=== PATIENT | male | born 1955 | race African-American/Black ===

== ENCOUNTER 2022-12-14 03:55 | Emergency (ER) | payer MEDICARE, OTHER ==
[~2022-12-14] VITALS: Ht 172.7 cm; Wt 76.0 kg
[~2022-12-14 03:55] MED LIST: ACET-3161 PO
[2022-12-14 04:03] VITALS: BP 132/109; PULSE 98; RESP 14; TEMP 98; O2SAT 100
[2022-12-14] MEDS ORDERED: ACETAMINOPHEN 325MG TABLET PO ONE (05:45)
[2022-12-14] MEDS ORDERED: TOPUD PO (05:56)
[2022-12-14] MEDS ORDERED: NALO4SPR BOTHNSTRLS (05:56)
[2022-12-14] MEDS ORDERED: B50 PO (05:56)
== END 2022-12-14 07:33 | disposition home or self-care (01) ==
LOC: ER 03:55
DX: G47.00 Insomnia, unspecified (principal); M79.641 Pain in right hand; M54.9 Dorsalgia, unspecified
CPT/HCPCS: 73130; 93005; 99283

== ENCOUNTER 2024-12-15 19:12 | Emergency (ER) | payer MEDICARE ==
[~2024-12-15] VITALS: Ht 167.6 cm; Wt 79.0 kg
[~2024-12-15 19:12] MED LIST changes: +B50 PO; +NALO4SPR BOTHNSTRLS; +TOPUD PO
[2024-12-15 19:14] VITALS: O2SAT 98
[2024-12-15 19:40] VITALS: BP 189/112; PULSE 66; RESP 18; TEMP 36.7; O2SAT 100
== END 2024-12-15 21:00 | disposition left against medical advice (07) ==
LOC: ER 19:12
DX: I10 Essential (primary) hypertension (principal); Z53.21 Procedure and treatment not carried out due to patient leaving prior to being seen by health care provider

== ENCOUNTER 2024-12-16 08:51 | Inpatient (IN) | payer OTHER, MEDICARE ==
[~2024-12-16] VITALS: Ht 327.7 cm; Wt 86.3 kg
[2024-12-16 08:53] VITALS: O2SAT 98
[2024-12-16 09:53] LABS: CREATININE 1.1 mg/dL (0.6-1.3)
[2024-12-16 09:54] LABS: TROPONIN I HIGH SENSITIVITY 37 ng/L (3.0-53); UREA NITROGEN BLOOD 9 mg/dL (9-23)
[2024-12-16 10:13] LABS: BASOPHILS % 1.0 % (0.0-2.0); EOSINOPHILS % 1.5 % (0.0-5.0); HEMATOCRIT. 36.2 % (42.0-52.0); HEMOGLOBIN. 11.9 g/dL (14.0-18.0); LYMPHOCYTES % 30.1 % (20.0-50.0); MEAN PLATELET VOLUME 8.6 fl (7.4-10.4); MONOCYTES % 8.9 % (2.0-8.0); NEUTROPHILS % 58.5 % (40.0-76.0); PLATELET 148 x1000/uL (130-400); RED BLOOD CELL COUNT 3.77 mill/uL (4.7-6.1); RED CELL DISTRIBUTION WIDTH 14.7 % (11.6-14.6)
[2024-12-16] MEDS ORDERED: ENOXAPARIN 80MG/0.8ML SYR SUBCUT SCH (11:30)
[2024-12-16] MEDS: ASPIRIN 81MG TABLET PO SCH (11:34)
[2024-12-16] MEDS: FUROSEMIDE 40MG/4ML VIAL IVP SCH (11:35)
[2024-12-16] MEDS: ISOSORBIDE DINITRATE 10MG TABLET PO SCH (11:35)
[2024-12-16 11:45] VITALS: BP 171/93; PULSE 60; RESP 19; TEMP 37.5
[2024-12-16 12:00] VITALS: BP 171/93; PULSE 60; RESP 19; TEMP 37.5; O2SAT 100
[2024-12-16] MEDS ORDERED: ONDANSETRON HCL 4MG/2ML INJ IV PRN (12:45)
[2024-12-16] MEDS ORDERED: ACETAMINOPHEN 325MG TABLET PO PRN (12:45)
[2024-12-16] MEDS ORDERED: IPRATROPIUM/ALBUTEROL 0.5-3(2.5)MG/3ML NEB NEB PRN (12:45)
[2024-12-16] MEDS ORDERED: MAGNESIUM/ALUMINUM HYDROXIDE/SIMETHICONE 30ML UDC PO PRN (12:45)
[2024-12-16] MEDS ORDERED: ENOXAPARIN 40MG/0.4ML SYR SUBCUT SCH (12:45)
[2024-12-16] MEDS ORDERED: HYDROCODONE/ACETAMINOPHEN 5/325MG TABLET PO PRN (12:45)
[2024-12-16] MEDS ORDERED: NALOXONE HCL 0.4MG/ML VIAL IV PRN (13:00)
[2024-12-16 13:15] LABS: INR 1.2
[2024-12-16] MEDS ORDERED: FUROSEMIDE 40MG/4ML VIAL IVP SCH (14:15)
[2024-12-16 16:00] VITALS: BP 179/94; PULSE 78; RESP 19; TEMP 37.1; O2SAT 100
[2024-12-16 16:21] LABS: TROPONIN I HIGH SENSITIVITY 40 ng/L (3.0-53)
[2024-12-16] MEDS: ENOXAPARIN 100MG/ML SYR SUBCUT SCH (16:40)
[2024-12-16 18:11] LABS: TROPONIN I HIGH SENSITIVITY 38 ng/L (3.0-53)
[2024-12-16 20:00] VITALS: BP 141/89; PULSE 76; RESP 20; TEMP 36.5; O2SAT 99
[2024-12-16] MEDS: ATORVASTATIN CALCIUM 40MG TABLET PO SCH (21:41)
[2024-12-16] MEDS: ZOLPIDEM TARTRATE 5MG TABLET PO PRN (21:46)
[2024-12-16 22:02] LABS: *AMPHETAMINES SCREEN URINE NEGATIVE (NEGATIVE); *BARBITURATES SCREEN URINE NEGATIVE (NEGATIVE); *BENZODIAZEPINES SCREEN URINE NEGATIVE (NEGATIVE); *COCAINE SCREEN URINE NEGATIVE (NEGATIVE); CANNABINOID URINE SCREEN NEGATIVE (NEGATIVE); ECSTASY MDMA SCREEN URINE NEGATIVE (NEGATIVE); METHADONE URINE SCREEN NEGATIVE (NEGATIVE); OPIATES URINE SCREEN PRESUMPTIVE POSITIVE (NEGATIVE); PHENCYCLIDINE URINE SCREEN NEGATIVE (NEGATIVE)
[2024-12-17] VITALS: BP 111/72; PULSE 64; RESP 19; TEMP 36.4; O2SAT 99
[2024-12-17 00:22] LABS: TROPONIN I HIGH SENSITIVITY 50 ng/L (3.0-53)
[2024-12-17 04:00] VITALS: BP 110/72; PULSE 65; RESP 20; TEMP 36.5; O2SAT 98
[2024-12-17] MEDS: ISOSORBIDE DINITRATE 10MG TABLET PO SCH (06:00)
[2024-12-17 06:26] LABS: BASOPHILS % 0.6 % (0.0-2.0); EOSINOPHILS % 1.7 % (0.0-5.0); HEMATOCRIT. 37.3 % (42.0-52.0); HEMOGLOBIN. 12.0 g/dL (14.0-18.0); LYMPHOCYTES % 49.0 % (20.0-50.0); MEAN PLATELET VOLUME 8.6 fl (7.4-10.4); MONOCYTES % 11.6 % (2.0-8.0); NEUTROPHILS % 37.1 % (40.0-76.0); PLATELET 159 x1000/uL (130-400); RED BLOOD CELL COUNT 3.85 mill/uL (4.7-6.1); RED CELL DISTRIBUTION WIDTH 15.2 % (11.6-14.6)
[2024-12-17 06:55] LABS: CREATININE 1.2 mg/dL (0.6-1.3); UREA NITROGEN BLOOD 14 mg/dL (9-23)
[2024-12-17 08:00] VITALS: BP 149/76; PULSE 72; RESP 20; TEMP 36.5; O2SAT 99
[2024-12-17] MEDS: PANTOPRAZOLE SODIUM 40 MG/VIAL IV SCH (08:42)
[2024-12-17 12:00] VITALS: BP 166/89; PULSE 77; RESP 20; TEMP 36.7; O2SAT 98
[2024-12-17] MEDS: POTASSIUM CHLORIDE 20MEQ TABLET SR PO SCH (12:26)
[2024-12-17 16:00] VITALS: BP 163/103; PULSE 88; RESP 18; TEMP 36.3; O2SAT 98
[2024-12-17] MEDS: CLONIDINE 0.1MG TABLET PO PRN (16:11)
== END 2024-12-17 18:05 | disposition left against medical advice (07) | DRG 291 ==
LOC: ER 08:51 → 8WST 10:26 → ENRESERV 10:47
PROVIDERS: ADMIT Internal Medicine; ATTEND Internal Medicine
DX: I11.0 Hypertensive heart disease with heart failure (principal); I50.43 Acute on chronic combined systolic (congestive) and diastolic (congestive) heart failure; J96.01 Acute respiratory failure with hypoxia; I16.1 Hypertensive emergency; I25.110 Atherosclerotic heart disease of native coronary artery with unstable angina pectoris; I42.0 Dilated cardiomyopathy; E78.5 Hyperlipidemia, unspecified; Z96.649 Presence of unspecified artificial hip joint; Z53.29 Procedure and treatment not carried out because of patient's decision for other reasons
CPT/HCPCS: 36415; 71045; 76604; 80048; 80305; 83880; 84484; 85025; 93005; 93306; 93880; 99285; A4606; J1650; J1940; J2470

== ENCOUNTER 2025-04-08 09:40 | Emergency (ER) | payer MEDICARE ==
[~2025-04-08] VITALS: Ht 175.3 cm; Wt 86.0 kg
[~2025-04-08 09:40] MED LIST changes: -B50 PO; +DIPH50CA42 PO
[2025-04-08 09:41] VITALS: TEMP 37.1; O2SAT 98
[2025-04-08 09:57] VITALS: BP 197/91; PULSE 80; RESP 12; O2SAT 100
[2025-04-08 10:12] LABS: BASOPHILS % 1.3 % (0.0-2.0); EOSINOPHILS % 0.5 % (0.0-5.0); HEMATOCRIT. 36.8 % (42.0-52.0); HEMOGLOBIN. 12.7 g/dL (14.0-18.0); LYMPHOCYTES % 21.9 % (20.0-50.0); MEAN PLATELET VOLUME 7.7 fl (7.4-10.4); MONOCYTES % 9.5 % (2.0-8.0); NEUTROPHILS % 66.8 % (40.0-76.0); PLATELET 229 x1000/uL (130-400); RED BLOOD CELL COUNT 3.49 mill/uL (4.7-6.1); RED CELL DISTRIBUTION WIDTH 13.7 % (11.6-14.6)
[2025-04-08 10:28] LABS: CREATININE 0.8 mg/dL (0.6-1.3)
[2025-04-08 10:29] LABS: UREA NITROGEN BLOOD < 5 mg/dL (9-23)
[2025-04-08 10:30] LABS: ASPARTATE AMINOTRANSFERASE 33 IU/L (<34); TROPONIN I HIGH SENSITIVITY 53 ng/L (3.0-53)
[2025-04-08 10:31] LABS: BILIRUBIN DIRECT 0.3 mg/dL (<=3.0); BILIRUBIN TOTAL 0.7 mg/dL (0.1-1.0); PROTEIN TOTAL 7.1 g/dL (6.0-8.3)
[2025-04-08] MEDS: SODIUM CHLORIDE 0.9% 1,000 ML IV ONE (11:31)
[2025-04-08] MEDS: KCL 20MEQ/100ML PREMIX 100 ML IV SCH (11:31)
[2025-04-08] MEDS: ONDANSETRON HCL 4MG/2ML INJ IV ONE (11:31)
[2025-04-08] MEDS: MORPHINE SULFATE 4 MG/ML INJ (FOR IV/IM USE) IV ONE (11:31)
[2025-04-08] MEDS: POTASSIUM CHLORIDE 20MEQ/PACKET PO ONE (11:32)
[2025-04-08] MEDS ORDERED: HYDRALAZINE 20MG/ML VIAL IV ONE (11:45)
== END 2025-04-08 13:37 | disposition left against medical advice (07) ==
LOC: ER 09:40 → CANBEDREQ 13:33 → ER 13:37
DX: R10.84 Generalized abdominal pain (principal); E87.6 Hypokalemia; K86.1 Other chronic pancreatitis; I10 Essential (primary) hypertension; F12.90 Cannabis use, unspecified, uncomplicated; Z96.643 Presence of artificial hip joint, bilateral; Z79.899 Other long term (current) drug therapy
CPT/HCPCS: 99284; 74176; 96365; 96375; 71045; 80076; 80048; 83880; 83690; 85025; 84484; 36415; 93005; J2405; J3480; J2270; J7030